=== PATIENT | female | born 1940 | race Hispanic/Latino ===

== ENCOUNTER 2024-04-20 06:02 | Observation (INO) | payer OTHER ==
[2024-04-14 09:27] LABS: Absolute Basophils 0.1 K/uL (0-0.5); Absolute Eosinophils 0.1 K/uL (0-0.5); Absolute Lymphocytes (CBC) 1.5 K/uL (0.7-4.9); Absolute Monocytes 0.3 K/uL (0.1-1.3); Absolute Neutrophil 5.8 K/uL (1.8-8.0); Basophils % 0.9 % (0-1.3); Hemoglobin 11.6 g/dL (12.0-15.0); Lymphocytes % 18.9 % (15.3-44.8); MCH 30.6 pg (27.0-35.0); MCHC 34.1 g/dL (32.0-36.0); MCV 89.7 fL (80-100); MPV 8.6 fL (7.6-11.3); Monocytes % 4.2 % (3.3-12.3); Platelets 318 thou/uL (152-406); RBC Red Blood Cell Count 3.79 M/uL (3.86-4.86); Red Cell Distribution Width 13.1 % (12.1-15.2)
[2024-04-14 09:30] LABS: Specific Gravity 1.011 (1.005-1.030); Sqamous Epithelial <5 /HPF (None Seen); Urine Bacteria <20 /HPF (<20); Urine Bilirubin NEGATIVE (Negative); Urine Blood Negative (Negative); Urine Clarity Extremely Turbid (Clear); Urine Color Light-Yellow (Yellow); Urine Crystals Unidentified Few /HPF (None Seen); Urine Culture Reflex Order REFLEXED; Urine Glucose NEGATIVE (Negative); Urine Ketones NEGATIVE (Negative); Urine Microscopic Reflex YN ORDER UMIC; Urine Mucus Slight /HPF (None Seen); Urine Nitrite NEGATIVE (Negative); Urine Protein 1+ (Negative); Urine RBC <5 /HPF (None Seen); Urine Urobilinogen Normal (Normal); Urine WBC Clump Rare /HPF (None Seen); Urine Yeast (Budding) Trace /HPF (None Seen); Urine pH 5.5 (5.0-7.0)
[2024-04-14 09:34] LABS: PT Prothrombin Time 11.1 SECONDS (9.4-12.5); Protime INR 0.99
--- NOTE | 2024-04-14 11:30 | EKG ---
Test Date: 2024-04-14 Test Time: 10:10:51 Psychiatric Tech: SEBASTIAN MEASUREMENT RESULTS: Intervals: Rate: 69 KS: 162 QRSD: 78 QT: 374 QTc: 400 [place]: P: 69 KS: 162 QRS: 12 T: 71 INTERPRETIVE STATEMENTS: Normal sinus rhythm Normal ECG Compared to ECG 09/06/2004 10:13:00 No significant changes Electronically Signed On 04-14-24 11:30:32 MEDICAL CARE MANAGER by Adilson Miller
[2024-04-20] MEDS: CEFAZOLIN SODIUM 2 GM/VIAL ONE (06:21)
[2024-04-20] MEDS: NA CHLORIDE 0.9% 100 ML ONE (06:27)
[2024-04-20] MEDS: NA CHLORIDE 0.9% 1,000 ML ONE (06:30)
[2024-04-20] MEDS ORDERED: dexAMETHasone 10 MG/ML VIAL ONE (06:33)
[2024-04-20] MEDS ORDERED: ONDANSETRON 4 MG/2 ML VIAL ONE (06:33)
[2024-04-20] MEDS ORDERED: LIDOCAINE 1% MPF 5 ML VIAL ONE (06:33)
[2024-04-20] MEDS ORDERED: propofoL 200 MG/20 ML VIAL IV ONE (06:34)
[2024-04-20] MEDS ORDERED: ROCURONIUM 50 MG/5 ML VIAL IV ONE (06:34)
[2024-04-20] MEDS ORDERED: FENTANYL CITR 100 MCG/2 ML ONE (06:34)
[2024-04-20] MEDS: DEXTROSE 10%-WATER 500 ML IV ONE (06:52)
[2024-04-20] MEDS: NS 0.9% VIAL 10 ML ONE (07:11)
[2024-04-20] MEDS ORDERED: EPHEDRINE SULF 50 MG/ML VIAL ONE (07:32)
[2024-04-20] MEDS: VASOPRESSIN 20 UNIT/ML VIAL ONE ×2 (07:50→08:40)
[2024-04-20] MEDS: CEFAZOLIN SODIUM 1 GM/VIAL ONE (08:15)
[2024-04-20] MEDS: NA CHLORIDE 0.9% 2,000 ML ONE (08:52)
[2024-04-20] MEDS: Ringers Lactate 1,000 ML IV ONE (10:00)
[2024-04-20] MEDS ORDERED: MORPHINE 2 MG/ML SYR IV PRN (10:22)
[2024-04-20 10:59] VITALS: O2SAT 100
[2024-04-20 12:53] VITALS: BMI 27.8
[2024-04-20] MEDS: CEFAZOLIN 1 GM in NA CHLORIDE 0.9% 50 ML IVPB SCH (16:44)
[2024-04-20] MEDS ORDERED: D10W 125 ML IV PRN (17:35)
[2024-04-20] MEDS ORDERED: GLUCAGON 1 MG/VIAL IM PRN (17:35)
[2024-04-20] MEDS: INSULIN REGULAR (HUMAN) 100 UNIT/ML SQ SCH (17:38)
--- NOTE | 2024-04-20 20:09 | OP ---
Date of Procedure: 04/20/2024 Surgeon: Beronica Ruiz MD Paste Up Copy Camera Operator: Rochelle Grossman. Preoperative Diagnoses: 1.Stage 4 vaginal prolapse. 2.Stress urinary incontinence. Postoperative Diagnoses: 1.Stage IV vaginal wall prolapse. 2.Posterior wall prolapse. 3.Anterior and posterior enterocele. 4.Perineocele. 5.Stress urinary incontinence. Procedures Performed: 1.Complete vaginal colpocleisis. 2.Distal posterior wall repair. 3.Perineocele repair. 4.Mid urethral sling transobturator (TVT-O) cystoscopy. Estimated Blood Loss: 100. Urine Output: 100. Fluids: 1000 LR. Specimens: None. Complications: None. Drains: Grey catheter. No other drains were placed. Implants: TVT-O. Findings: Pop-Q +3 +7 +7, 6.5, then 12, -1, +6 NA posterior enterocele was significant with lack of posterior wall fascia that could be attached to the anterior wall fascia in the distal portion and th erefore, the posterior repair was done and then the attachment was done, perineocele was significant and perineal body had to be reconstructed completely as well as the perineum. At the end with cystos copy the patent ureters were seen, no evidence of any trauma or mesh in the bladder from the sling or in the urethra. Significant trabeculations and minor brown patchy erythema in the bladder. Indications: The patient is an 84-year-old with recurrent vaginal wall prolapse after repair. She h as had significant voiding dysfunction and defecatory problems. The vaginal bulge is the most bother some symptom. She was evaluated with cystoscopy. No evidence of any tumor or abnormal anatomy. Out let obstruction from the prolapse and kinking of the urethra. Urodynamic study was performed. She h ad "MANE." She also has urge urinary incontinence. She was counseled on her options including pessar y and surgery. Surgical alternatives included vaginal reconstruction, laparoscopic reconstruction an d colpocleisis. Given her age and her medical condition, the most conservative colpocleisis was disc ussed including permanent and irreversible closure of the vaginal canal, and the patient was very kervin ar about her desires for future sexual status. She had no desire to be sexually active or have any v aginal intercourse. She was consented after medical clearance. She was brought to the hospital. Her A1c was decently co ntrolled. Her fasting blood sugar this morning was 77. Description Of Procedure: After informed consent was re-verified, her daughter by her bedside, she w as taken back to the OR. She was given 2 g of Ancef. General anesthesia with LMA was given. She wa s placed in dorsal lithotomy position using Scott stirrups. Lower abdomen, medial thigh as well the vagina and perineum were prepped and draped in a sterile fashion. Grey was placed to drain the blad diane and retracted superiorly. A [place]irk retractor was used for retraction. Careful lithotomy was used without any hyperflexion. After assessment and the Pop-Q was done, anterior and posterior compartments were drawn out for the a reas of vaginal epithelial excision. A trapezoid was drawn anteriorly a cm proximal to the UVJ and i n the posterior wall about 2 cm from the hymen. Then, dilute vasopressin 20 units in 100 cc of génesis l saline 50 mL was then used in the anterior compartment, posterior compartment, another 50 mL. Then vaginal epithelium was excised using a 15 blade and Allis clamps from the anterior and posterior com partments keeping intact as much as the sub epithelium and connective tissue was possible on both wal ls. Then, the vaginal vault was sutured with 0 Vicryl in a continuous running imbricating fashion al l the way from the left of the vaginal vault to the right and then the right lateral wall was sutured . Then the left lateral wall from the vault was sutured. Once this was done, then a 2-0 Vicryl was used to close symmetrically the anterior and posterior verma with interrupted sutures and then contin uous sutures in 3 layers. Once this was done, the distal portion of the closure was done with the lp of interrupted six 2-0 Vicryl [id number] sutures. This completed the colpocleisis part. Posterior repair and perineocele repair: The distal posterior wall with a perineocele as well as the posterior wall defect with a large enterocele was all noted. Then, a chiki-shaped incision was ma de from the distal portion of the closure of the colpocleisis and all the way onto the perineum. Aft er injecting dilute vasopressin 25 mL again in this area, an incision was made with 15 blade and the epithelium was taken down. Then, flaps were raised. The enterocele was dissected and the closure wa s done by using a continuous running 2-0 Vicryl suture from the repair of the colpocleisis down to th e posterior fascia once this was brought together. The posterior wall repair was done after opening up the entire distal posterior wall laterally all th e way to the levators and then the perineum was dissected laterally to expose the deep transverse per ineum and the remnants. Connective tissue was brought together with 3 layers of 2-0 Vicryl to reconstruct the perineum and th e perineal body. Once this was done, the sheath of the external sphincter had to be sutured, but the sphincter was intact. Then brought in the posterior fascia together from [id number]. Then, the e nterocele repair was done as discussed above and this brought the entire colpocleisis closure down in to a continuous layer with distal posterior connective tissue and this was then attached to the newly reconstructed perineal body structure. Then vaginal epithelium was slightly trimmed and closure was done with the help of 2-0 Vicryl and 3-0 Vicryl on the perineum in subcutaneous and subcuticular lay ers. Rectal exam was negative for any sutures or trauma. Mid urethral sling: A 1.5 cm incision was made in the mid urethral area with the help of a 15 blade after 10 mL of dilute vasopressin was injected. Then through the epithelium, sub epithelium, connect nasim tissue, the tunnels were made towards the ipsilateral obturator internus hugging the inferior pub ic ramus at a 45-degree angle to the horizontal and vertical planes. The track was expanded after pi ercing the obturator fascia on both sides. The tracks were made without any trouble. Then the wing guide was placed. The needle was passed and it was exited 2 cm lateral to the groin fold and above t he level of the external meatus avoiding the adductor longus tendon. The sheath and the mesh were he ld. The plastic dilator was cut. Similar pass on the opposite side was taken, mesh was then tension ed in the middle with the help of Metzenbaum scissors to slightly snug around the urethra without any removed after the sheaths were removed and the mesh cut flush with the skin. Skin closed with Dermabond. After irrigation with antibiotic solution, the connective tissue and epithelium wer e closed on top of the sling with continuous running 3-0 Vicryl. Cystoscopy was performed. Both ure teric orifices were patent. No evidence of any mesh or trauma on the lateral aspects of the internal meatus and the entire bladder was visualized. Patchy erythema was discussed in the findings and tra beculation but completely unremarkable. Grey was replaced. A Nickie-Pad was placed. Instrument, nee dle, and sponge counts were correct at end of case. EBL was 100. The patient was recovered from ane sthesia and taken to PACU in stable condition and her medical condition during the procedure was stab le. BONY/ASAF Voice ID: [id number] Report ID: [id number]
[2024-04-21 08:55] VITALS: BP 152/69; TEMP 98.9
[2024-04-21] MEDS: ACETAMINOPHEN 500 MG TAB PO PRN (09:53)
== END 2024-04-21 10:50 | disposition home or self-care (01) ==
LOC: OR 06:02 → 2ND 10:28
PROVIDERS: ADMIT Obstetrics & Gynecology; ATTEND Obstetrics & Gynecology
PROC: 0KQM0ZZ Repair Perineum Muscle, Open Approach (ICD-10-PCS; 2024-04-20)
PROC: 0TSD0ZZ Reposition Urethra, Open Approach (ICD-10-PCS; 2024-04-20)
PROC: 0ULG8ZZ Occlusion of Vagina, Via Natural or Artificial Opening Endoscopic (ICD-10-PCS; principal; 2024-04-20 07:00)
DX: N81.2 Incomplete uterovaginal prolapse (principal); N39.3 Stress incontinence (female) (male); R35.0 Frequency of micturition; R10.2 Pelvic and perineal pain; N95.2 Postmenopausal atrophic vaginitis; E11.65 Type 2 diabetes mellitus with hyperglycemia; I10 Essential (primary) hypertension; N81.81 Perineocele
CPT/HCPCS: 93005; 87088; 85025; 81001; 87086; 80048; 36415; 86900; 86850; 85610; 86901; 82947 ×6; 85730; 87077; 87186; 94010; 57120; 57250; 57288; A4216; J2704; J2003; J3010; J1100; J2405; J7120; J7030; J0690 ×3; G0378; G0379